=== PATIENT | female | born 1990 | race Caucasian/White ===

== ENCOUNTER 2018-11-27 06:24 | Inpatient (IN) | payer MEDICAID ==
[2018-11-27] MEDS ORDERED: STADOL IV PRN (07:00)
[2018-11-27 10:10] LABS: Basophils % (Auto) 0.2 % (0.0-1.8); Eosinophils % (Auto) 0.2 % (0.0-4.3); Hematocrit 41.2 % (30.3-42.9); Hemoglobin 14.1 gm/dl (10.1-14.3); Lymphocytes # (Auto) 1.8 K/mm3 (1.2-5.4); Lymphocytes % (Auto) 19.5 % (13.4-35.0); Mean Corpuscular HGB Conc 34 % (30-34); Mean Corpuscular Volume 93 fl (79-97); Monocytes # (Auto) 0.5 K/mm3 (0.0-0.8); Monocytes % (Auto) 5.7 % (0.0-7.3); Platelet Count 280 K/mm3 (140-440); Red Blood Count 4.44 M/mm3 (3.65-5.03); Red Cell Distribution Width 14.5 % (13.2-15.2)
[2018-11-27] MEDS ORDERED: BRETHINE SUB-Q PRN (10:23)
[2018-11-27] MEDS ORDERED: ZOFRAN IV PRN ×2 (10:23→18:52)
[2018-11-27] MEDS ORDERED: MINERAL OIL PO PRN (10:23)
[2018-11-27] MEDS ORDERED: BRETHINE IVP PRN (10:23)
--- NOTE | 2018-11-27 10:32 | History and Physical Report ---
History of Present Illness Date of examination: 11/27/18 Date of admission: 11/27/18 09:56 Chief complaint: labor History of present illness: Menstrual History Regularity: regular Duration: 4 LMP: 02/20/2018 LMP reliability: definite LMP character: normal test type: urine test Date: 06/03/2018 BC at conception: none Planned ? yes EDC Calculations LMP: 11/27/2018 EDC Confirmation: 11/27/2018 Past History : 2 Term Births: 1 Premature Births: 0 Living Children: 1 Para: 1 Mult. Births: 0 Prev : 0 Aborta: 0 Elect. Ab: 0 Spont. Ab: 0 Ectopics: 0 # 1 Delivery date: 06/25/2014 Weeks Gestation: 39 labor: no Delivery type: Hours of labor: 14 Anesthesia type: IV Delivery location: [facility] Infant Sex: Female weight: 7-6 Name: Liseth Past Medical History: Negative Past Medical History Past Surgical History: Negative Past Surgical History Family History Summary: Other family member - Has No Family History of Ovarvian Cancer - Entered On: 06/03/2018 Other family member - Has No Family History of Colon Cancer - Entered On: 06/03/2018 Other family member - Has No Family History of Breast Cancer - Entered On: 06/03/2018 Other family member - Has Family History of Stomach Cancer - Entered On: 06/03/2018 Other family member - Has Family History of Hypertension - Entered On: 06/03/2018 Other family member - Has Family History of Diabetes - Entered On: 06/03/2018 Social History: Marital Status: Children: 1 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 of genital herpes: no Partner hx. of genital herpes: no Genetic History Congenital Heart Defect: Mom: no Dad: no Stu Disease: Mom: no Dad: no Thalassemia Mom: no Dad: no Neural Tube Defect Mom: no Dad: no Down's Syndrome Mom: no Dad: no Gibson-Sachs Mom: no Dad: no Sickle Cell Disease/Trait Mom: no Dad: no Hemophilia Mom: no Dad: no Muscular Dystrophy Mom: no Dad: no Cystic Fibrosis Mom: no Dad: no [place] Chorea Mom: no Dad: no Mental Retardation Mom: no Dad: no Fragile X Mom: no Dad: no Other Genetic/Chromosomal Disorder Mom: no Dad: no Child w/other defect Mom: no Dad: no Active Medications (reviewed today): VITAMIN PLUS LOW IRON 27-1 MG ORAL TABLET ( VIT-FE FUMARATE-FA) 1 po q day as directed Current Allergies (reviewed today): No known allergies Past History Past Medical History: other (see HPI) Past Surgical History: other (see HPI) 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) Family/Genetic History: other (see HPI) Social history: other (see HPI) - Obstetrical History : 2 Para: 1 Medications and Allergies Allergies Allergy/AdvReac Type Severity Reaction Status Date / Time No Known Allergies Allergy Verified 06/23/14 08:15 Home Medications Medication Instructions Recorded Confirmed Last Taken Type Pnv,Calcium 72/Iron/Folic Acid 1 tab PO DAILY 06/25/14 06/25/14 06/24/14 History [Pnv Plus Multivit Tab] Ferrous Sulfate [Feosol 325 MG tab] 325 mg PO BID #60 tablet 06/26/14 Unknown Rx Ibuprofen [Motrin 600 MG tab] 600 mg PO Q6H PRN #30 tablet 06/26/14 Unknown Rx Vit-Fe Fumar-FA [ 1 each PO QDAY #30 tablet 06/26/14 Unknown Rx Vitamin] oxyCODONE /ACETAMINOPHEN [Percocet 1 tab PO Q6H PRN #30 tablet 06/26/14 Unknown Rx 5/325 mg] Active Meds: Active Medications Ephedrine Sulfate (Ephedrine Sulfate) 10 mg IV Q2M PRN PRN Reason: Hypotension Lactated Ringer's (Lactated Ringers) 1,000 mls @ 999 mls/hr IV BOLUS ONE Stop: 11/27/18 12:06 Last Admin: 11/27/18 10:19 Dose: 999 mls/hr Documented by: Lactated Ringer's (Lactated Ringers) 1,000 mls @ 125 mls/hr IV DIRECT TERESA Oxytocin/Sodium Chloride (Pitocin/Ns 20 Unit/1000ml Drip) 20 units in 1,000 mls @ 125 mls/hr IV DIRECT TERESA Oxytocin/Sodium Chloride (Pitocin/Ns 30 Unit/500ml) 30 units in 500 mls @ 4 mls/hr IV TITR TERESA; Protocol Lidocaine (Xylocaine 2%) 20 ml INFILTRATI ONCE ONE Stop: 11/27/18 10:24 Mineral Oil (Mineral Oil) 30 ml PO QHS PRN PRN Reason: Constipation Ondansetron HCl (Zofran) 4 mg IV Q8H PRN PRN Reason: Nausea And Vomiting Terbutaline Sulfate (Brethine) 0.25 mg SUB-Q ONCE PRN PRN Reason: Hyperstimulation/Hypertonicity Terbutaline Sulfate (Brethine) 0.25 mg IVP ONCE PRN PRN Reason: Hyperstimulation/Hypertonicity Review of Systems All systems: negative Genitourinary: contractions - Vital Signs Vital signs: Vital Signs Pulse BP 84 114/79 11/27/18 07:45 11/27/18 07:45 Temp Pulse Resp BP Pulse Ox 98.1 F 91 H 20 127/79 11/27/18 09:35 11/27/18 10:03 11/27/18 09:35 11/27/18 10:03 - Physical Exam Breasts: Positive: normal Cardiovascular: Regular rate, Normal S1, Normal S2 Abdomen: Positive: normal appearance, soft, normal bowel sounds. Negative: distention, tenderness Genitourinary (Female): Positive: normal external genitalia, normal perenium Vulva: both: normal Vagina: Positive: normal moisture. Negative: discharge Cervix: Negative: lesion, discharge Uterus: Positive: normal size, normal contour Adnexa: both: normal Anus/Rectum: Positive: normal perianal skin, heme negative. Negative: rectal mass, hemorrhoids Extremities: Deep Tendon Reflex Grade: Normal +2 - Obstetrical FHR: auscultation normal, category 1 Uterine Contraction Monitor Mode: External Uterine Contraction Pattern: Irregular Uterine Tone Measurement Phase: Contraction Uterine Contraction Intensity: Mild Results Result Diagrams: 11/27/18 11:06 Abnormal lab results 11/27/18 Range/Units 09:20 Seg Neutrophils % 74.4 H (40.0-70.0) % All other labs normal. Assessment and Plan pt presents to triage for c/o labor. 5 cm per RN. routine admission orders place. patient desires unmedicated labor and delivery. GBS negative. anticipate .
[2018-11-27] MEDS ORDERED: PITOCin/NS 30 UNIT/500ML 30 UNITS/500 ML BAG IV SCH (11:00)
[2018-11-27] MEDS ORDERED: PITOCin/NS 20 UNIT/1000ML DRIP 20 UNITS/1,000 ML BAG IV SCH ×2 (11:00→19:00)
[2018-11-27] MEDS ORDERED: LACTATED RINGERS 1,000 ML IV ONE (11:06)
[2018-11-27] MEDS ORDERED: XYLOCAINE 2% INFILTRATI ONE ×3 (11:23→20:08)
[2018-11-27 11:26] LABS: Hematocrit 34.2 % (30.3-42.9); Hemoglobin 11.6 gm/dl (10.1-14.3); Mean Corpuscular HGB Conc 34 % (30-34); Mean Corpuscular Volume 93 fl (79-97); Platelet Count 234 K/mm3 (140-440); Red Cell Distribution Width 14.3 % (13.2-15.2)
[2018-11-27] MEDS ORDERED: STADOL ONE ×2 (11:29→15:45)
[2018-11-27] MEDS ORDERED: LACTATED RINGERS 1,000 ML IV SCH (12:00)
--- NOTE | 2018-11-27 13:15 | Event Note ---
Date: 11/27/18 Patient resting in bed, reports regular contractions. She received one dose of IV pain medications per RN, she reports being comfortable. Category 1 tracing at this time. Irregular contractions via TOCO, palpating moderate. SVE 7.5/90/-2, assessment. Patient reports this baby feels slightly larger than prior delivery (proven pelvis to 7#6 , delivered without complications per patient). FH/leopolds appropriate for GA. Discussed with patient possibility/risk for shoulder dystocia and potential lasting complications to infant or even , maneuvers to relieve SD, episiotomy, possibility of 4th degree perineal tear through rectum. DWP alternate mode of delivery via c/s if elected. Patient declines, verbalizes understanding for risks involved with vaginal delivery, opts to continue progressing toward vaginal delivery. Patient elects for SROM, performed without difficulty. Meconium fluid noted. RN at bedside and will notify NICU to be present at delivery. FHTs remain category 1 post SROM. Patient declines epidural. Continue monitoring. Anticipate .
--- NOTE | 2018-11-27 16:04 | Event Note ---
Date: 11/27/18 Patient feeling increased pressure in rectum, intermittent, comfortable between contractions. SVE 8/100/-1. Category 1 tracing. only 0.5 cm change in 4+ hrs. Pitocin ordered to be initiated at this time. Patient aware and agrees to proceed. Patient declines epidural at this time. 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 Patient verbalizes understanding, understands to call with any changes in assessment, urge to push, constant rectal pressure. RN at bedside. Will continue to monitor. Anticipate .
[2018-11-27] MEDS ORDERED: SUBLIMAZE ONE (17:47)
--- NOTE | 2018-11-27 18:42 | Procedure Note ---
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 placed skin to skin on mother's abdomen, cord clamped x2 and cut. handed off to awaiting NICU resus team for assessment d/t meconium stained amniotic fluid. Placenta delivered complete and intact. Pitocin to IV. Fundus firm, ML. clitoral tear noted, assessed by Dr. Jacobo. Repaired with single interrupted stitch. hemostasis achieved. VSS> infant apgars 7/9, wt 3770 g. mother requesting iv pain medications. reports being comfortable after administration. Mother and remain in LDR, stable condition. - A at 1 minute: 7 at 5 minutes: 9 Gender: Male (3770 grams)
[2018-11-27] MEDS ORDERED: TUCKS PAD TP PRN (18:52)
[2018-11-27] MEDS ORDERED: LANSINOH TP PRN (18:52)
[2018-11-27] MEDS ORDERED: BENADRYL PO PRN (18:52)
[2018-11-27] MEDS ORDERED: TYLENOL PO PRN (18:52)
[2018-11-27] MEDS ORDERED: DULCOLAX PR PRN (18:52)
[2018-11-27] MEDS ORDERED: MILK OF MAGNESIA PO PRN (18:52)
[2018-11-27] MEDS ORDERED: PHENERGAN PO PRN (18:52)
[2018-11-27] MEDS ORDERED: SODIUM CHLORIDE FLUSH SYRINGE 10 ML IV SCH (19:00)
[2018-11-27] MEDS ORDERED: SUBLIMAZE IV ONE (20:00)
[2018-11-27] MEDS: IBUPROFEN PO SCH (23:33)
[2018-11-28] MEDS: IBUPROFEN PO SCH ×3 (05:33→18:09)
[2018-11-28 07:50] LABS: Hematocrit 30.6 % (30.3-42.9); Hemoglobin 10.5 gm/dl (10.1-14.3)
[2018-11-28] MEDS ORDERED: PRENATAL VITAMIN PO SCH (10:00)
--- NOTE | 2018-11-28 10:46 | Discharge Summary ---
Providers - Providers Date of Admission: 11/27/18 09:56 Date of discharge: 11/28/18 Attending physician: EMIR MOCTEZUMA Primary care physician: EMIR MOCTEZUMA Hospitalization Reason for admission: active labor Delivery: Episiotomy: none Laceration: other (clitoral tear) Incision: normal Other procedures: none complications: none Discharge diagnosis: IUP at term delivered [place] baby: male (declined circ) Hospital course: Uncomplicated . Pt sitting in bed eating. No c/o voiced. VSS. FF at umbli. Lochia small. Perineum intact. H/H 05/28 stable. Doing well s/p . P: D/C today with instructions. RTO 4wks PPC. Condition at discharge: Good Disposition: DC- TO HOME OR SELFCARE - Discharge Diagnoses (1) Normal spontaneous vaginal delivery Status: Acute Comment: RTO 4wks PPC Plan - Provider Discharge Summary Activity: routine, no sex for 6 weeks, no heavy lifting 4 weeks, no strenuous exercise Diet: routine Instructions: routine Additional instructions: [] Smoking cessation referral if applicable(refer to patient education folder for contact #) [] Refer to [facility] Booklet Call your doctor immediately for: * Fever > 100.5 * Heavy vaginal bleeding ( >1 pad per hour) * Severe persistent headache * Shortness of breath * Reddened, hot, painful area to leg or breast * Drainage or odor from incision. * Keep incision clean and dry at all times and follow doctor's instructions regarding bathing/showering - Follow up plan Follow up: EMIR MOCTEZUMA MD [Primary Care Provider] - 12/30/18 (Congradulations! Please call [phone] to schedule your visit in four weeks. Motrin/Ibuprofen for pain or cramping. Call with concerns. )
[2018-11-28 22:55] VITALS: BP 115/73
== END 2018-11-28 21:05 | disposition home or self-care (01) | DRG 989 ==
LOC: TRG 06:24 → LD 09:56 → OB 20:46
PROVIDERS: ADMIT Obstetrics & Gynecology; ATTEND Obstetrics & Gynecology
PROC: 10E0XZZ Delivery of Products of Conception, External Approach (ICD-10-PCS; principal; 2018-11-27)
PROC: 0UQJXZZ Repair Clitoris, External Approach (ICD-10-PCS; 2018-11-27)
DX: O77.0 Labor and delivery complicated by meconium in amniotic fluid (principal); Z37.0 Single live birth; O99.334 Smoking (tobacco) complicating childbirth; O69.1XX0 Labor and delivery complicated by cord around neck, with compression, not applicable or unspecified; O71.89 Other specified obstetric trauma; F17.210 Nicotine dependence, cigarettes, uncomplicated; Z3A.40 40 weeks gestation of pregnancy
CPT/HCPCS: 36415; 85014; 85018; 85025; 85027; 86592; 86850; 86900; 86901; 88307; G0378; J0595; J2590; J3010; J7120